=== PATIENT | male | born 1980 | race African-American/Black ===

== ENCOUNTER 2017-09-30 16:30 | Emergency (ER) | END 2017-09-30 20:44 | disposition home or self-care (01) ==

== ENCOUNTER 2018-07-14 13:22 | Emergency (ER) | payer MEDICAID ==
[~2018-07-14] VITALS: Ht 180.3 cm; Wt 104.0 kg
[~2018-07-14 13:22] MED LIST: NAPR-985 PO
[2018-07-14 13:41] VITALS: BP 134/84; PULSE 91; RESP 18; Ht 180.3 cm; Wt 104.0 kg
[2018-07-14] MEDS ORDERED: KETOROLAC 60 MG INJ IM STA (14:25)
[2018-07-14] MEDS ORDERED: DEXAMETHASONE 10 MG/ML 1 ML INJ IM ONE (14:30)
[2018-07-14] MEDS ORDERED: OXYM15SP34 NASAL (15:11)
[2018-07-14] MEDS ORDERED: FLUT16SP17 NASAL (15:11)
[2018-07-14] MEDS ORDERED: CETI10TA19 PO (15:11)
[2018-07-14] MEDS ORDERED: IBUP800T48 PO (15:11)
[2018-07-14] MEDS ORDERED: [UNRECOGNIZED DRUG - CODE] PO (15:11)
[2018-07-14] MEDS ORDERED: AMOX1TAB10 PO (15:14)
--- NOTE | 2018-07-14 15:27 | ERD ---
ER Documentation Chief Complaint Chief Complaint VILLANUEVA, sinus pain congestion & green mucus x4 days HPI History of Present Illness: 38-year-old male who denies a past medical history coming in today with complaint of headache, sinus pain, nasal congestion, green nasal mucus, right ear pain, postnasal drip area. Patient reports symptoms have been present for 4 days. 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 At home pharmacological/nonpharmacological treatment for symptoms: Advil, nasal irrigation with peroxide, XL 3 cold medication Denies social concerns; Denies recent foreign travel ROS All systems reviewed and are negative except as per history of present illness. Medications Home Meds Active Scripts Amoxicillin/Potassium Clav (Amox-Clav 875-125 mg Tablet) 875-125 mg Tab, 1 TAB PO BID for sinus infection for 7 Days, #20 TAB take with frood Prov:LAINA HERNANDEZ NP 07/14/18 Guaifenesin (Guaifenesin) 1,200 Mg Tab.er.12h, 1200 MG PO BID for loosen mucus secretions/drain for 7 Days, TAB Prov:LAINA HERNANDEZ NP 07/14/18 Oxymetazoline Hcl* (Afrin [place]*) 0.05% - 15 Ml [place], 2 SPRAYS NASAL BID for nasal congestion for 2 Days, #1 EA to each nostril Prov:LAINA HERNANDEZ NP 07/14/18 Cetirizine Hcl* (Cetirizine Hcl*) 10 Mg Tablet, 10 MG PO DAILY for allergi es/runny nose/sinusitis, #30 TAB Prov:LAINA HERNANDEZ NP 07/14/18 Fluticasone Propionate* (Fluticasone Propionate* Nasal) 50 Mcg/[place] - 16 Gm [place].susp, 1 SPRAY NASAL DAILY for nasal congestion/stuffy nose, #1 BOTTLE TO EACH NOSTRIL Prov:LAINA HERNANDEZ NP 07/14/18 Ibuprofen* (Motrin*) 800 Mg Tab, 800 MG PO Q6H PRN for PAIN AND OR ELEVATED TEMP, #30 TAB Prov:LAINA HERNANDEZ NP 07/14/18 Naproxen* (Naprosyn*) 500 Mg Tablet, 500 MG PO BID PRN for PAIN AND/OR INFLAMMATION, #30 TAB Prov:FÉLIX DAVIS PA-C 09/30/17 Allergies Allergies: Coded Allergies: No Known Allergy (Unverified , 07/14/18) PMhx/Soc Medical and Surgical Hx: pt denies Medical Hx History of Surgery: Yes (R KNEE SX 2004) Hx Alcohol Use: No Hx Substance Use: No Hx Tobacco Use: No Smoking Status: Never smoker FmHx Family History: No diabetes, No coronary disease Physical Exam Vitals Vital Signs Date Temp Pulse Resp B/P (MAP) Pulse Ox O2 O2 Flow FiO2 Time Delivery Rate 07/14/18 99.1 91 18 134/84 98 13:41 (101) Physical Exam Const: No acute distress Head: Atraumatic, tenderness to palpation to frontal and maxillary sinuses Eyes: Normal Conjunctiva ENT: Normal External Ears, Nose and Mouth. No erythema to bilateral tympanic membranes, no bulging, no perforation. Erythematous pharynx, 2+ tonsils without exudate, uvula midline. Nasal turbinates swollen and red mucosa. Neck: Full range of motion. No meningismus. Resp: Clear to auscultation bilaterally Cardio: Regular rate and rhythm, no murmurs Abd: Soft, non tender, non distended. Normal bowel sounds Skin: No petechiae or rashes Back: No midline or flank tenderness Ext: No cyanosis, or edema Neur: Awake and alert Psych: Normal Mood and Affect Results 24 hrs Current Medications Medications Dose Sig/Malachi Start Time Status Last (Trade) Ordered Route PRN Stop Time Admin Dose Reason Admin Ketorolac 60 mg ONCE STAT 07/14/18 DC 07/14/18 Tromethamine IM 14:25 07/14/18 14:34 (Toradol) 14:27 10 mg ONCE ONCE 07/14/18 DC 07/14/18 Dexamethasone IM 14:30 07/14/18 14:34 (Decadron) 14:31 Procedures/MDM ED course includes a thorough examination and history. Medications: Dexamethasone, ketorolac Imaging: Labs: Low suspicion for life-threatening medical emergency. Low suspicion for infectious emergency that requires hospitalization or IV/IM antibiotics. Low suspicion for HEENT medical emergency that is life-threatening or requires hospitalization. Otherwise healthy patient presenting with constellation of symptoms likely representing uncomplicated acute sinusitis as characterized by history, physical exam findings. Patient reassessment 1520: Patient hemodynamically stable. No respiratory distress, otherwise relatively well appearing and nontoxic. Disposition given. Saline irrigation education provided. Patient educated on diagnoses, prescriptions, follow-up care, return precautions. Strict return precautions given for worsening condition; questions answered discharge. Pocket Rx for Augmentin given; patient verbalized understanding of instructions to get this filled on 07/19/2018 if symptoms are still present. Disposition for discharge with followup in 2 days with PCP/clinic. Departure Diagnosis: Primary Impression: Acute sinusitis, unspecified Sinusitis location: unspecified location Recurrence: not specified as recurrent Qualified Codes: J01.90 - Acute sinusitis, unspecified Condition: Stable Patient Instructions: Sinusitis, No Abx Referrals: [facility] YOU HAVE RECEIVED A MEDICAL SCREENING EXAM AND THE RESULTS INDICATE THAT YOU DO NOT HAVE A CONDITION THAT REQUIRES URGENT TREATMENT IN THE EMERGENCY DEPARTMENT. FURTHER EVALUATION AND TREATMENT OF YOUR CONDITION CAN WAIT UNTIL YOU ARE SEEN IN YOUR DOCTORS OFFICE WITHIN THE NEXT 1-2 DAYS. IT IS YOUR RESPONSIBILITY TO MAKE AN APPOINTMENT FOR FOLOW-UP CARE. IF YOU HAVE A PRIMARY DOCTOR --you should call your primary doctor and schedule an appointment IF YOU DO NOT HAVE A PRIMARY DOCTOR YOU CAN CALL OUR PHYSICIAN REFERRAL HOTLINE AT IF YOU CAN NOT AFFORD TO SEE A PHYSICIAN YOU CAN CHOSE FROM THE FOLLOWING [facility] [address] [facility]. [facility] [address] [facility]. [facility] [address] [facility] [facility] [address] [facility] [facility] [address] [facility]. [facility]. [address] [facility]. [facility] YOU HAVE RECEIVED A MEDICAL SCREENING EXAM AND THE RESULTS INDICATE THAT YOU DO NOT HAVE A CONDITION THAT REQUIRES URGENT TREATMENT IN THE EMERGENCY DEPARTMENT. FURTHER EVALUATION AND TREATMENT OF YOUR CONDITION CAN WAIT UNTIL YOU ARE SEEN IN YOUR DOCTORS OFFICE WITHIN THE NEXT 1-2 DAYS. IT IS YOUR RESPONSIBILITY TO MAKE AN APPOINTMENT FOR FOLOW-UP CARE. IF YOU HAVE A PRIMARY DOCTOR --you should call your primary doctor and schedule and appointment IF YOU DO NOT HAVE A PRIMARY DOCTOR YOU CAN CALL OUR PHYSICIAN REFERRAL HOTLINE AT . IF YOU CAN NOT AFFORD TO SEE A PHYSICIAN YOU CAN CHOSE FROM THE FOLLOWING [facility] INSTITUTIONS: [facility] [address] [place] [address] [facility] [address] [place] [address] [facility] [address] [place] [address] Additional Instructions: Thank you very much for allowing us to participate in your care. Your health and safety is our top priority at [facility]. It is important to read all discharge instructions and education provided in your discharge packet. *We are providing a pocket prescription for an antibiotic called Augmentin. If your symptoms are still present on 07/20/18; then you may start this antibiotic.* Call your primary care doctor TOMORROW for an appointment during the next 2-4 days and bring all the information and medications prescribed. Have prescriptions filled and follow precisely the directions on the label. -Cetirizine as an antihistamine that should not cause drowsiness; take this medication every day for allergy-like symptoms/cough/runny nose. --Ibuprofen is a medication that will help with pain/inflammation. At the dosage of 600 to 800 mg, this will help with inflammation/swelling. Take this medication as prescribed. --Fluticasone Is a Steroid Nose [place] for the Nose; Use This Every Day for S tuffy Nose/Nasal Congestion. --Guaifenesin is a medication that will help with with mucus/secretions (will help thin the secretions). Take this medication daily as prescribed. tHis medication will not make you drowsy -Oxymetazoline is a nasal decongestant. Take this medication as prescribed for 2 days only. If the symptoms get worse and your provider is unavailable, return to the Emergency Department immediately. LAINA HERNANDEZ NP Jul 14, 2018 15:27
== END 2018-07-14 15:33 | disposition home or self-care (01) ==
LOC: FTE 13:22
DX: J01.90 Acute sinusitis, unspecified (principal)
CPT/HCPCS: J1100; J1885; 96372